=== PATIENT | female | born 1985 | race Native Hawaiian/Other Pacific Islander ===

== ENCOUNTER 2021-11-15 16:23 | Emergency (ER) | payer OTHER ==
[~2021-11-15] VITALS: Ht 162.6 cm; Wt 99.8 kg
[2021-11-15 17:02] VITALS: BP 128/78; TEMP 97.6
== END 2021-11-15 19:05 | disposition home or self-care (01) ==
LOC: ED 16:23
DX: Z53.21 Procedure and treatment not carried out due to patient leaving prior to being seen by health care provider (principal)
CPT/HCPCS: 99281

== ENCOUNTER 2021-11-30 22:20 | Emergency (ER) | payer OTHER ==
[~2021-11-30] VITALS: Ht 162.6 cm; Wt 99.8 kg
[2021-11-30 23:32] VITALS: BP 146/89; TEMP 98.6
== END 2021-11-30 23:32 | disposition home or self-care (01) ==
LOC: ED 22:20
DX: T74.11XA Adult physical abuse, confirmed, initial encounter (principal); S00.83XA Contusion of other part of head, initial encounter; S00.81XA Abrasion of other part of head, initial encounter; S01.411A Laceration without foreign body of right cheek and temporomandibular area, initial encounter; Y07.01 Husband, perpetrator of maltreatment and neglect; Y04.2XXA Assault by strike against or bumped into by another person, initial encounter; Y92.098 Other place in other non-institutional residence as the place of occurrence of the external cause
CPT/HCPCS: 96372; 99283; J0690; J1885

== ENCOUNTER 2021-12-04 15:35 | Emergency (ER) | payer OTHER ==
[~2021-12-04] VITALS: Ht 162.6 cm; Wt 99.8 kg
[2021-12-04 15:40] VITALS: TEMP 97.2
[2021-12-04 17:00] VITALS: BP 148/82
== END 2021-12-04 17:00 | disposition home or self-care (01) ==
LOC: ED 15:35
DX: R07.89 Other chest pain (principal)
CPT/HCPCS: 96372; 99283; J1885

== ENCOUNTER 2021-12-31 15:43 | Outpatient (CLI) | payer OTHER | END 2021-12-31 19:46 | disposition home or self-care (01) | LOC: CT 15:43 | PROVIDERS: ATTEND Nurse Practitioner Family | DX: S05.11XA Contusion of eyeball and orbital tissues, right eye, initial encounter (principal); Y92.9 Unspecified place or not applicable | CPT/HCPCS: Q9963 ==

== ENCOUNTER 2022-07-06 12:52 | Emergency (ER) | payer OTHER ==
[~2022-07-06] VITALS: Ht 162.6 cm; Wt 99.8 kg
[2022-07-06 18:55] VITALS: BP 116/81; TEMP 98.1
== END 2022-07-06 18:57 | disposition home or self-care (01) ==
LOC: ED 12:52
DX: M79.18 Myalgia, other site (principal); M54.2 Cervicalgia; S20.01XA Contusion of right breast, initial encounter; S30.1XXA Contusion of abdominal wall, initial encounter; V89.2XXA Person injured in unspecified motor-vehicle accident, traffic, initial encounter; Y92.89 Other specified places as the place of occurrence of the external cause
CPT/HCPCS: 81025; 96372; 99283; J1885